=== PATIENT | female | born 1955 | race Caucasian/White ===

== ENCOUNTER 2018-07-17 16:45 | Inpatient (IN) ==
--- NOTE | 2018-07-17 17:12 | Emergency Department Note ---
Disposition Clinical Impression: Dyspnea Qualifiers: Dyspnea type: dyspnea on exertion Qualified Code(s): R06.09 - Other forms of dyspnea Disposition: Still a Patient General Adult HPI - General Chief complaint: ED Shortness of Breath/Dyspnea Stated complaint: narcisa Time Seen by Provider: 07/17/18 16:46 Source: patient, EMS Limitations: no limitations Nursing Notes Reviewed: Yes Vital Signs Reviewed: Yes - History of Present Illness HPI Narrative: ED attending attestation note: I examined this patient and my medical decision-making was reviewed with the emergency medicine resident Aiden Avalos. I agree with the documented findings, disposition and treatment plan as described except to the extent set forth below. Briefly: 62-year-old female sent from [facility] urgent care for shortness breath possible CHF patient x-ray there showing vascular congestion some bibasilar atelectasis patient denies chest pain weakness or numbness her lungs are clear afebrile stable vital signs patient can EKG and screening labs. Disposition pending. There is no pedal edema Pain Scale: 0 - Related Data Home Medications Medication Instructions Recorded Confirmed ALPRAZolam [Xanax 1 MG Tablet] 1 mg PO BID PRN 01/31/15 07/17/18 Albuterol Neb [Proventil Neb] 2.5 mg IH PRN PRN 01/31/15 07/17/18 Budesonide/Formoterol 80/4.5 2 puff IH BIDR 01/31/15 07/17/18 [Symbicort] Desvenlafaxine Succinate [Pristiq 100 mg PO QAM 01/31/15 07/17/18 ER] Meclizine [Antivert] 25 mg PO PRN PRN 01/31/15 07/17/18 Omeprazole [PriLOSEC] 20 mg PO BIDAC 01/31/15 07/17/18 Perphenazine/Amitriptyline HCl 1 tab PO DAILY 01/31/15 07/17/18 [Perphen-Amitrip 2 mg-25 mg Tab] Rosuvastatin [Crestor] 10 mg PO DAILY 01/31/15 07/17/18 Tizanidine [Zanaflex] 4 mg PO Q8H PRN 01/31/15 07/17/18 Hydroxychloroquine [Plaquenuil] 200 mg PO BID 01/29/16 07/17/18 Dextroamphetamine Sulfate 30 mg PO BID 08/05/16 07/17/18 [Dexedrine] Ferrous Sulfate [Iron] 325 mg PO BID 08/05/16 07/17/18 Ascorbic Acid [Vitamin C] 500 mg PO DAILY 10/29/16 07/17/18 Biotin [Ronnie Biotin] 20,000 mcg PO DAILY 10/29/16 07/17/18 Calcium Carb/Vitamin D3/Vit K1 1 each PO BID 10/29/16 07/17/18 [Calcium + D Soft Chewable Tab] Oxygen 2 l NS HS 10/29/16 07/17/18 Pediatric Multivit Comb No.29 2 tab PO DAILY 10/29/16 07/17/18 [Gummies Girls' Multivitamins] Albuterol Sulfate [Proair 2 puff IH PRN PRN 02/25/17 07/17/18 Respiclick] Amlodipine Besylate 10 mg PO DAILY 02/25/17 07/17/18 Diclofenac Sodium [Voltaren] 1 appl TP QID PRN 02/25/17 07/17/18 Lidocaine Patch [Lidoderm 5% patch] 1 patch TP DAILY PRN 03/07/17 07/17/18 Losartan Potassium [Cozaar] 100 mg PO DAILY 03/07/17 07/17/18 Mupirocin [Bactroban Oint] 1 appl TP BID 03/07/17 07/17/18 hydrOXYzine HCl [Hydroxyzine HCl] 50 mg PO DAILY PRN 03/07/17 07/17/18 Umeclidinium [place] [Incruse 62.5 mcg IH DAILY 08/26/17 07/17/18 Ellipta] Perphenazine/Amitriptyline HCl 1 each PO DAILY 02/27/18 07/17/18 [Perphen-Amitrip 4 mg-10 mg Tab] Previous Rx's Medication Instructions Recorded Folic Acid 1 mg PO DAILY #90 tablet 05/08/18 Allergies Allergy/AdvReac Type Severity Reaction Status Date / Time oxycodone [Oxycodone] Allergy Unknown Itching/del Verified 02/27/18 14:23 usional Methylphenidate AdvReac Palpitation Verified 02/27/18 14:23 [From Ritalin] s Past Medical History - Past Medical History Medical history: Reports: asthma, COPD, hypertension Surgical history: Reports: non-contributory Psychiatric history: Reports: anxiety, depression - Social History Smoking Status: Never smoker Smokeless Tobacco Status: No Alcohol use: Reports: none Drug use: Reports: none Physical Exam - General Limitations: no limitations General appearance: alert, in no apparent distress Course Vital Signs Temperature 98.5 F 07/17/18 16:54 Pulse Rate 92 07/17/18 16:54 Respiratory Rate 18 07/17/18 16:54 Blood Pressure 132/81 07/17/18 16:54 O2 Sat by Pulse Oximetry 95 07/17/18 16:54 Temperature 98.5 F 07/17/18 16:54 Pulse Rate 92 07/17/18 16:54 Respiratory Rate 18 07/17/18 16:54 Blood Pressure 132/81 07/17/18 16:54 O2 Sat by Pulse Oximetry 95 07/17/18 16:54 Oxygen Delivery Oxygen Delivery Nasal Cannula
[2018-07-17 17:41] LABS: Basophils % 0.5 %; Eosinophils # 0.1 K/mcL (0.0-0.6); Eosinophils % 1.1 %; Hematocrit 29.2 % (35.3-44.9); Hemoglobin 9.7 g/dL (11.5-15.4); Immature Granulocytes % 1.3 % (0-4); Lymphocytes # 2.5 K/mcL (0.6-4.6); Lymphocytes % 45.1 %; Mean Corpuscular HGB Conc 33.2 g/dL (31.6-35.5); Mean Corpuscular Hemoglobin 28.8 pg (28.0-33.3); Mean Corpuscular Volume 86.6 fL (83.0-100.0); Mean Platelet Volume 10.4 fL (9.4-12.4); Monocytes # 0.5 K/mcL (0.0-1.3); Monocytes % 8.6 %; Neutrophils # 2.4 K/mcL (1.6-8.9); Platelet Count 175 K/mcL (140-400); Red Blood Count 3.37 M/mcL (3.82-4.97); Red Cell Distribution Width 14.6 % (11.5-14.5); Segmented Neutrophils % 43.4 %
[2018-07-17 18:01] LABS: Alanine Aminotransferase 28 Units/L (7-52); Albumin 3.5 g/dL (3.5-5.7); Albumin/Globulin Ratio 1.5 (1.1-2.2); Alkaline Phosphatase 113 Units/L (34-104); Aspartate Amino Transferase 36 Units/L (13-39); BUN/Creatinine Ratio 15 (6-26); Bilirubin,Direct 0.1 mg/dL (0.0-0.2); Bilirubin,Indirect 0.4 mg/dL (0.0-1.2); Bilirubin,Total 0.5 mg/dL (0.3-1.0); Blood Urea Nitrogen 8 mg/dL (8-23); Calcium 8.4 mg/dL (8.6-10.3); Carbon Dioxide 27 mEq/L (23-29); Chloride 105 mEq/L (98-107); Globulin 2.4 g/dL (2.4-3.5); Glucose 106 mg/dL (70-105); Osmolality,Calculated 291 (280-300); Potassium 3.3 mEq/L (3.5-5.1); Sodium 141 mEq/L (136-145); Total Protein 5.9 g/dL (6.4-8.9); eGFR For Non-African Americans > 60 (> 60)
[2018-07-17 18:04] LABS: Reactive Lymphocytes Present (Not Present)
--- NOTE | 2018-07-17 18:05 | Emergency Department Note ---
Disposition Clinical Impression: Dyspnea Qualifiers: Dyspnea type: dyspnea on exertion Qualified Code(s): R06.09 - Other forms of dyspnea Disposition: Still a Patient Referrals: Sandra Costa MD [Primary Care Provider] - Forms: ED Satisfaction Letter SOB HPI - General Chief Complaint: ED Shortness of Breath/Dyspnea Stated Complaint: narcisa Time Seen by Provider: 07/17/18 16:46 Source: patient, EMS Limitations: no limitations Nursing Notes Reviewed: Yes Vital Signs Reviewed: Yes - History of Present Illness 62-year-old female past medical history of COPD and asthma presenting for 2 day history of gradually progressive and worsening dyspnea. Patient was seen at urgent care and told to come to the ED due to a negative workup at urgent care in light of her current symptoms. Patient states that in addition to dyspnea she feels 5 out of 10 chest tightn ess, patient has admitted to cotton and cold spells without objective fevers, patient is to nausea, as well as numbness and paresthesias in her extremities. Patient denies overt or generalized chest pain, no neck or back pain, no abdominal pain or vomiting. Pt Subjective Complaint: shortness of breath, pain with inspiration (Patient admits to epigastric pain made worse upon inspiration.) Onset (ago): day(s) Severity: moderate Consistency/Duration: gradually worsening Worsens with: movement, inspiration Known history of: COPD, asthma Associated symptoms: Reports: pain with inspiration, fever, nausea/vomiting Treatment prior to arrival: none Cough present: No - Related Data Home Medications Medication Instructions Recorded Confirmed ALPRAZolam [Xanax 1 MG Tablet] 1 mg PO BID PRN 01/31/15 07/17/18 Albuterol Neb [Proventil Neb] 2.5 mg IH PRN PRN 01/31/15 07/17/18 Budesonide/Formoterol 80/4.5 2 puff IH BIDR 01/31/15 07/17/18 [Symbicort] Desvenlafaxine Succinate [Pristiq 100 mg PO QAM 01/31/15 07/17/18 ER] Meclizine [Antivert] 25 mg PO PRN PRN 01/31/15 07/17/18 Omeprazole [PriLOSEC] 20 mg PO BIDAC 01/31/15 07/17/18 Perphenazine/Amitriptyline HCl 1 tab PO DAILY 01/31/15 07/17/18 [Perphen-Amitrip 2 mg-25 mg Tab] Rosuvastatin [Crestor] 10 mg PO DAILY 01/31/15 07/17/18 Tizanidine [Zanaflex] 4 mg PO Q8H PRN 01/31/15 07/17/18 Hydroxychloroquine [Plaquenuil] 200 mg PO BID 01/29/16 07/17/18 Dextroamphetamine Sulfate 30 mg PO BID 08/05/16 07/17/18 [Dexedrine] Ferrous Sulfate [Iron] 325 mg PO BID 08/05/16 07/17/18 Ascorbic Acid [Vitamin C] 500 mg PO DAILY 10/29/16 07/17/18 Biotin [Ronnie Biotin] 20,000 mcg PO DAILY 10/29/16 07/17/18 Calcium Carb/Vitamin D3/Vit K1 1 each PO BID 10/29/16 07/17/18 [Calcium + D Soft Chewable Tab] Oxygen 2 l NS HS 10/29/16 07/17/18 Pediatric Multivit Comb No.29 2 tab PO DAILY 10/29/16 07/17/18 [Gummies Girls' Multivitamins] Albuterol Sulfate [Proair 2 puff IH PRN PRN 02/25/17 07/17/18 Respiclick] Amlodipine Besylate 10 mg PO DAILY 02/25/17 07/17/18 Diclofenac Sodium [Voltaren] 1 appl TP QID PRN 02/25/17 07/17/18 Lidocaine Patch [Lidoderm 5% patch] 1 patch TP DAILY PRN 03/07/17 07/17/18 Losartan Potassium [Cozaar] 100 mg PO DAILY 03/07/17 07/17/18 Mupirocin [Bactroban Oint] 1 appl TP BID 03/07/17 07/17/18 hydrOXYzine HCl [Hydroxyzine HCl] 50 mg PO DAILY PRN 03/07/17 07/17/18 Umeclidinium [place] [Incruse 62.5 mcg IH DAILY 08/26/17 07/17/18 Ellipta] Perphenazine/Amitriptyline HCl 1 each PO DAILY 02/27/18 07/17/18 [Perphen-Amitrip 4 mg-10 mg Tab] Previous Rx's Medication Instructions Recorded Folic Acid 1 mg PO DAILY #90 tablet 05/08/18 Allergies Allergy/AdvReac Type Severity Reaction Status Date / Time oxycodone [Oxycodone] Allergy Unknown Itching/del Verified 02/27/18 14:23 usional Methylphenidate AdvReac Palpitation Verified 02/27/18 14:23 [From Ritalin] s All systems ED: reviewed and negative except as stated. Review of Systems: As Per HPI Constitutional: Reports: fever, chills, weakness Cardiovascular: Reports: chest pain, palpitations Respiratory: Reports: dyspnea Gastrointestinal: Reports: nausea. Denies: abdominal pain, vomiting, diarrhea, constipation, hematemesis, melena, hematochezia Genitourinary: Denies: hematuria Musculoskeletal: Denies: back pain, neck pain Neurological: Reports: weakness, numbness, paresthesias. Denies: headache Past Medical History - Past Medical History Medical history: Reports: asthma, COPD, hypertension Surgical history: Reports: non-contributory Psychiatric history: Reports: anxiety, depression - Social History Smoking Status: Never smoker Smokeless Tobacco Status: No Alcohol use: Reports: none Drug use: Reports: none Physical Exam - General Limitations: no limitations General appearance: alert, in no apparent distress - Head Head exam: atraumatic, normocephalic, normal inspection - Eye Eye exam: Present: normal appearance, PERRL, EOMI. Absent: scleral icterus - Neck Neck exam: Present: normal inspection, trachea midline. Absent: thyromegaly - Chest Chest inspection: Present: normal inspection, symmetric chest wall rise. Absent: tenderness - Respiratory Respiratory exam: Present: normal lung sounds bilaterally. Absent: respiratory distress, wheezes, stridor, accessory muscle use, prolonged expiratory phase - Cardiovascular Cardiovascular exam: Present: regular rate, normal rhythm, normal heart sounds, +S1, +S2. Absent: systolic murmur, diastolic murmur, JVD, +S3, +S4 - Abdominal Exam Abdominal exam: Present: soft, Non-Tender, normal bowel sounds. Absent: distention, guarding, rebound, rigidity, organomegaly - Neurological Exam Neurological exam: Present: alert, oriented X3 - Psychiatric Psychiatric exam: Present: normal affect, normal mood - Skin Skin exam: Present: warm, dry, intact, normal color. Absent: rash, cyanosis, diaphoresis, erythema, pallor, mottled Course Course Narrative: X-ray from outside facility shows mild interstitial edema with pulmonary infiltrates Likely CHF exacerbation Patient without known history of CHF We will likely admit for further evaluation. Vital Signs Temperature 98.5 F 07/17/18 16:54 Pulse Rate 92 07/17/18 16:54 Respiratory Rate 18 07/17/18 16:54 Blood Pressure 132/81 07/17/18 16:54 O2 Sat by Pulse Oximetry 95 07/17/18 16:54 Temperature 98.5 F 07/17/18 16:54 Pulse Rate 78 07/17/18 18:17 Respiratory Rate 18 07/17/18 18:17 Blood Pressure 132/80 07/17/18 18:17 O2 Sat by Pulse Oximetry 96 07/17/18 18:17 Oxygen Delivery Oxygen Delivery Room Air Shortness of Breath/Dyspnea - MDM Narrative Medical decision making narrative: Patient admitted to hospitalist medicine service for further evaluation and management of congestive heart failure exacerbation. - Lab Data Lab results reviewed: Yes I reviewed the patient's lab results. Result diagrams: 07/17/18 17:15 07/17/18 17:15 Lab Results 07/17/18 07/17/18 07/17/18 Range/Units 17:15 17:15 17:15 WBC 5.6 (4.3-11.1) K/mcL RBC 3.37 L (3.82-4.97) M/mcL Hgb 9.7 L (11.5-15.4) g/dL Hct 29.2 L (35.3-44.9) % MCV 86.6 (83.0-100.0) fL MCH 28.8 (28.0-33.3) pg MCHC 33.2 (31.6-35.5) g/dL RDW 14.6 H (11.5-14.5) % Plt Count 175 (140-400) K/mcL MPV 10.4 (9.4-12.4) fL Immature Gran % 1.3 (0-4) % Seg Neutrophils % 43.4 % Lymphocytes % 45.1 % Monocytes % 8.6 % Eosinophils % 1.1 % Basophils % 0.5 % Neutrophils # 2.4 (1.6-8.9) K/mcL Lymphocytes # 2.5 (0.6-4.6) K/mcL Monocytes # 0.5 (0.0-1.3) K/mcL Eosinophils # 0.1 (0.0-0.6) K/mcL Basophils # 0.0 (0.0-0.2) K/mcL Reactive Lymphocytes Present A (Not Present) Sodium 141 (136-145) mEq/L Potassium 3.3 L (3.5-5.1) mEq/L Chloride 105 (98-107) mEq/L Carbon Dioxide 27 (23-29) mEq/L BUN 8 (8-23) mg/dL Creatinine 0.52 L (0.60-1.20) mg/dL Est GFR ( Amer) > 60 (> 60) Est GFR (Non-Af Amer) > 60 (> 60) BUN/Creatinine Ratio 15 (6-26) Glucose 106 H (70-105) mg/dL Calculated Osmolality 291 (280-300) Calcium 8.4 L (8.6-10.3) mg/dL Total Bilirubin 0.5 (0.3-1.0) mg/dL Direct Bilirubin 0.1 (0.0-0.2) mg/dL Indirect Bilirubin 0.4 (0.0-1.2) mg/dL AST 36 (13-39) Units/L ALT 28 (7-52) Units/L Alkaline Phosphatase 113 H (34-104) Units/L B-Natriuretic Peptide 238 H (Less than 100) pg/mL Serum Total Protein 5.9 L (6.4-8.9) g/dL Albumin 3.5 (3.5-5.7) g/dL Globulin 2.4 (2.4-3.5) g/dL Albumin/Globulin Ratio 1.5 (1.1-2.2) - Radiology Data Radiology results reviewed: Yes I reviewed the patient's radiology results. - EKG Data EKG attestation: Yes I reviewed and interpreted this EKG. EKG results narrative: Patient EKG shows a sinus rhythm with ventricular rate 90 bpm WI interval of 195 ms QRS duration of 11 ms, QT/QTc interval 366/416 ms respectively. There are no significant ST segment elevations, depressions, pathologic Q waves, abnormal T- wave inversions, or any other signs of acute ischemic change. At this time there is no prior EKG available for comparison. Repeat EKG performed in ED shows sinus rhythm with a ventricular premature complex with a heart of 84 bpm WI interval 170 ms, QRS duration 10 ms, QT/QTc interval 394/466 ms respectively. There are no significant ST segment elevations, depressions, pathologic Q waves, abnormal T-wave inversions, nor any other signs of acute ischemic change. EKG performed today is generally consistent with prior EKG performed on 03/07/2017.
[2018-07-17] MEDS ORDERED: ALPRAZolam 0.5 MG TABLET PO ONE (18:19)
[2018-07-17] MEDS ORDERED: Furosemide 40 MG/4 ML VIAL IVP ONE (19:53)
[2018-07-17] MEDS ORDERED: MethylPREDNISolone 40 MG/ML VIAL IVP ONE (19:54)
[2018-07-17] MEDS ORDERED: Albuterol 2.5 MG/3 ML NEBULIZER IH PRN (20:44)
[2018-07-17] MEDS ORDERED: tiZANidine 4 MG TABLET PO PRN (20:44)
[2018-07-17] MEDS ORDERED: hydrOXYzine pamoate 25 MG CAPSULE PO PRN (20:44)
[2018-07-17] MEDS ORDERED: Potassium Chloride Elixir 20 MEQ/15 ML UDC PO ONE (20:49)
[2018-07-17] MEDS ORDERED: Isovue-370 500 ML BOTTLE IVP ONE (20:50)
[2018-07-17] MEDS: Ipratropium/Albuterol Neb 3 ML IH SCH ×2 (20:55→23:51)
--- NOTE | 2018-07-17 20:55 | Internal Med History&Physical ---
Date of Encounter: 07/17/18 Time of Encounter: 20:54 Internal Medicine - H&P: HPI Chief complaint: SOB Admitted From: Home Plans for Post Hospital Care: Home History of present illness: Soledad Hernandez is a 62 year old woman with hypertension, diabetes, anemia, Sjogrens and asthma/COPD on nocturnal oxygen who presents to the emergency room complaining of increasing shortness of breath over the past week that has not been responsive to her home inhaler treatments. She denies accompanying cough, sputum production, chest pain, fever and chills. X-ray at urgent care showed mild interstitial edema although she has no known history of heart failure. She required continuous supplemental oxygen to maintain oxygen saturations which is a new requirement and is admitted for further care. Lab work was grossly unremarkable. Vitals: Reviewed General: Obese white woman sitting up in bed in NAD Skin: Warm, dry HEENT: Moist mucous membranes. No conjunctivae pallor. Neck: No lymphadenopathy. No JVD. No carotid bruits. No palpable thyroid. Chest: Diminished thoracic expansion, scoliotic. Reduced air entry into both lung eckert. Heart: Normal S1 & S2; rhythmic. No rubs or murmurs. Abdomen: Non-distended, soft and non-tender to palpation. No peritoneal reaction. Extremities: No clubbing, cyanosis or edema. No calf tenderness. Normal distal pulses. Arthritic hands with nodular deformities on DIPs/PIPs. Neurological: Awake, alert and oriented to person, place and time. No focal deficits. Psych: Affect appropriate. Assessment/Plan Acute hypoxic respiratory failure: I am concerned that this is secondary to her underlying COPD and requires more aggressive therapy than what she can get at home and therefore will place her on standing nebulizer therapy q4hrs and systemic steroids. No indication for antimicrobials at this point. The presence of interstitial congestion also gives concern for pulmonary edema especially with a mildly elevated BNP although not meeting threshold for CHF. Will there fore give a dose of furosemide 40mg IVP tonight to assess her response after diuresis and obtain a TTE for evaluation of cardiac morphology. Given her underlying connective tissue disorder she may also be developing an interstitial lung disease and therefore she will benefit from CT evaluation which can also rule out pulmonary embolism as a cause of her hypoxia. Will schedule it for the morning once she is able to lay supine after getting more breathing treatments. Anemia: Microcytic and concerning for iron deficiency. It is noted she has previously seen hematology in the past because of this. Will get iron studies for evaluation and resume FeSO4/folate. Sjogrens: Continue hydroxychloroquine. HTN: Continue home antihypertensive medications. Diabetes: Reportedly diet controlled. Will check an A1C. Past Med Surg Social Fam HX - Past Medical History Medical history: asthma, COPD, hypertension Additional medical history: [id number] Psychiatric history: anxiety, depression - Past Surgical History Surgical History: non-contributory Additional surgical history: tubal ligation -back surgery x 2 - left thumb surgery - Hiatel hernia - Right CTR - Right RCR - bilateral vein stripping - n odule from face - lip biopsy - Social History Smoking Status: Never smoker Smokeless Tobacco Status: No Alcohol use: none Drug use: none - Family History Mother Cause of : Stroke Hx Family Cardiac Disorders: Yes Internal Medicine - H&P: Meds ALPRAZolam [Xanax 1 MG Tablet] 0.5 mg PO BID PRN 01/31/15 [History] Albuterol Neb [Proventil Neb] 2.5 mg IH PRN PRN 01/31/15 [History] Budesonide/Formoterol 80/4.5 [Symbicort] 2 puff IH BIDR 01/31/15 [History] Desvenlafaxine Succinate [Pristiq ER] 100 mg PO QAM 01/31/15 [History] Meclizine [Antivert] 25 mg PO PRN PRN 01/31/15 [History] Omeprazole [PriLOSEC] 20 mg PO BIDAC 01/31/15 [History] Perphenazine/Amitriptyline HCl [Perphen-Amitrip 2 mg-25 mg Tab] 1 tab PO DAILY 01/31/15 [History] Rosuvastatin [Crestor] 10 mg PO DAILY 01/31/15 [History] Tizanidine [Zanaflex] 4 mg PO Q8H PRN 01/31/15 [History] Hydroxychloroquine [Plaquenuil] 200 mg PO DAILY 01/29/16 [History] Dextroamphetamine Sulfate [Dexedrine] 30 mg PO BID 08/05/16 [History] Ferrous Sulfate [Iron] 325 mg PO BID 08/05/16 [History] Ascorbic Acid [Vitamin C] 500 mg PO DAILY 10/29/16 [History] Biotin [Ronnie Biotin] 20,000 mcg PO DAILY 10/29/16 [History] Calcium Carb/Vitamin D3/Vit K1 [Calcium + D Soft Chewable Tab] 1 each PO BID 10/29/16 [History] Oxygen 2 l NS HS 10/29/16 [History] Pediatric Multivit Comb No.29 [Gummies Girls' Multivitamins] 2 tab PO DAILY 10/29/16 [History] Albuterol Sulfate [Proair Respiclick] 2 puff IH PRN PRN 02/25/17 [History] Amlodipine Besylate 10 mg PO HS 02/25/17 [History] Diclofenac Sodium [Voltaren] 1 appl TP QID PRN 02/25/17 [History] Lidocaine Patch [Lidoderm 5% patch] 1 patch TP DAILY PRN 03/07/17 [History] hydrOXYzine HCl [Hydroxyzine HCl] 50 mg PO DAILY PRN 03/07/17 [History] Umeclidinium [place] [Incruse Ellipta] 62.5 mcg IH DAILY 08/26/17 [History] Folic Acid 1 mg PO DAILY #90 tablet 05/08/18 [Rx] Losartan/Hydrochlorothiazide [Losartan-Hctz 100-25 mg Tab] 1 each PO QAM 07/17/18 [History] Tens Units and Tens Electrodes [Pro Comfort Tens Unit] 07/17/18 [History] Allergy/AdvReac Type Severity Reaction Status Date / Time oxycodone [Oxycodone] Allergy Unknown Itching/del Verified 02/27/18 14:23 usional Methylphenidate AdvReac Palpitation Verified 02/27/18 14:23 [From Ritalin] s All Systems PM: A 10-system review of systems was performed and is negative for pertinent findings except as documented above in the HPI. - Constitutional Vitals: Temp Pulse Resp BP Pulse Ox 98.0 F 77 15 125/64 95 07/17/18 20:06 07/17/18 20:06 07/17/18 20:06 07/17/18 20:06 07/17/18 20:06 Exam: . Internal Med - H&P Results - Labs CBC & Chem 7: 07/17/18 17:15 07/17/18 17:15 Labs: Short CBC 07/17/18 Range/Units 17:15 WBC 5.6 (4.3-11.1) K/mcL Hgb 9.7 L (11.5-15.4) g/dL Hct 29.2 L (35.3-44.9) % Plt Count 175 (140-400) K/mcL Neutrophils # 2.4 (1.6-8.9) K/mcL BMP 07/17/18 17:15 Sodium 141 Potassium 3.3 L Chloride 105 Carbon Dioxide 27 BUN 8 Creatinine 0.52 L Glucose 106 H Calcium 8.4 L Liver Function 07/17/18 Range/Units 17:15 Total Bilirubin 0.5 (0.3-1.0) mg/dL Direct Bilirubin 0.1 (0.0-0.2) mg/dL AST 36 (13-39) Units/L ALT 28 (7-52) Units/L Alkaline Phosphatase 113 H (34-104) Units/L Albumin 3.5 (3.5-5.7) g/dL - Time Spent With Patient Total time spent is greater than 50% in coordination of care (as documented) at patient's floor/unit and/or counseling patient: Greater than 35 minutes
[2018-07-17] MEDS: amLODIPine 5 MG TABLET PO SCH (21:20)
[2018-07-17] MEDS ORDERED: Naloxone 0.4 MG/ML INJ IVP PRN (21:46)
[2018-07-17] MEDS ORDERED: Acetaminophen 325 MG TABLET PO PRN (21:46)
[2018-07-18] MEDS: Ipratropium/Albuterol Neb 3 ML IH SCH ×5 (04:15→22:00)
[2018-07-18 05:51] LABS: INR 1.1; Prothrombin Time 12.3 Seconds (9.4-12.1)
[2018-07-18 05:53] LABS: Activated Partial Thrombo Time 33.5 Seconds (26.0-36.0)
[2018-07-18] MEDS: *HR* Heparin 5,000 UNIT/ML VIAL SQ SCH ×2 (07:28→17:04)
[2018-07-18 07:47] LABS: % Iron Saturation 15 % (15-50); BUN/Creatinine Ratio 17 (6-26); Blood Urea Nitrogen 9 mg/dL (8-23); Calcium 8.8 mg/dL (8.6-10.3); Carbon Dioxide 26 mEq/L (23-29); Chloride 104 mEq/L (98-107); Ferritin 558 ng/mL (10-120); Glucose 147 mg/dL (70-105); Iron 51 mcg/dL (50-170); Osmolality,Calculated 295 (280-300); Potassium 3.7 mEq/L (3.5-5.1); Sodium 142 mEq/L (136-145); Transferrin 242 mg/dL (203-362); eGFR For Non-African Americans > 60 (> 60)
[2018-07-18 08:10] LABS: Basophils % 0.4 %; Eosinophils % 0.2 %; Hematocrit 29.7 % (35.3-44.9); Hemoglobin 9.8 g/dL (11.5-15.4); Immature Granulocytes % 3.1 % (0-4); Lymphocytes # 1.8 K/mcL (0.6-4.6); Lymphocytes % 39.9 %; Mean Corpuscular Hemoglobin 28.3 pg (28.0-33.3); Mean Corpuscular Volume 85.8 fL (83.0-100.0); Mean Platelet Volume 10.8 fL (9.4-12.4); Monocytes # 0.2 K/mcL (0.0-1.3); Monocytes % 4.5 %; Neutrophils # 2.3 K/mcL (1.6-8.9); Platelet Count 185 K/mcL (140-400); Red Blood Count 3.46 M/mcL (3.82-4.97); Red Cell Distribution Width 14.8 % (11.5-14.5); Segmented Neutrophils % 51.9 %
[2018-07-18 08:26] LABS: Estimated Average Glucose 123 mg/dl; Hemoglobin A1C 5.9 %
[2018-07-18] MEDS ORDERED: Losartan/HCTZ 50-12.5 TABLET PO SCH (09:00)
[2018-07-18] MEDS ORDERED: (Umeclidinium Bromide [Incruse Ellipta] 62.5 MCG) IH SCH (09:00)
[2018-07-18] MEDS: Ascorbic Acid 500 MG TABLET PO SCH (09:14)
[2018-07-18] MEDS: Folic Acid 1 MG TABLET PO SCH (09:15)
[2018-07-18] MEDS: Venlafaxine XR (24 HR) 150 MG CAP.ER.24H PO SCH (09:15)
[2018-07-18] MEDS: predniSONE 20 MG TABLET PO SCH (09:15)
[2018-07-18] MEDS: ALPRAZolam 0.5 MG TABLET PO PRN ×2 (09:25→20:24)
--- NOTE | 2018-07-18 12:32 | Internal Med Progress Note ---
Hospitalist Progress Note - Encounter Date of Encounter: 07/18/18 Time of Encounter: 12:31 - Subjective Interval History: Pt today says she can breathe a lot easier today, taking much deeper breaths. Says she's gotten breathing treatments as well which helped some. Urinated a lot from the lasix. Does have mildly swollen ankles. Tolerated CT this morning well. Good appetite today. - Exam Vitals: Temp Pulse Resp BP Pulse Ox 97.5 F L 77 17 120/74 94 07/18/18 11:19 07/18/18 11:19 07/18/18 11:19 07/18/18 11:19 07/18/18 11:19 Exam: General: NAD, good eye contact, well appearing, obese Thoracic: Good air movement, bibasilar crackles Cardio: Normal S1 and S2, regular rate and rhythm, no murmurs Abdomen: Soft, nontender Extremities: Warm, well perfused. DP pulses 2+ b/l. Does have pitting b/l LE edema through knees and dependent in thighs Skin: Intact. No rashes, bruises, or ulcers Neuro: Awake, fully oriented. Speech fluent - Summary of Assessment and Plan Summary of Assessment and Plan: Soledad Hernandez is a 62 F w hx COPD on 2L qhs, HTN, DM2, Sjogrens, morbid obesity, who p/w SOB, pedal edema, bibasilar crackles, elevated BNP, and b/l pleural effusions, consistent with acute CHF. Acute HF: longstanding HTN and COPD, elevated BNP and pedal edema, good UOP overnight w lasix - Lasix 40 iv bid - strict I&Os, daily weights - TTE pending COPD in acute exacerbation: - nebs q6h&prn - prednisone 40 daily x5d, s/p solumedrol 125 in ED - azithromycin 500 po daily x5d - home inhalers Acute hypoxic respiratory failure: requiring 2L O2 to maintain sats >88% - supplemental O2, wean as able - IS - treat cause as above - walk test prior to discharge Mild normocytic anemia: 2/2 chronic disease, home iron tabs, keep Hb >7 Hypokalemia: replace and monitor HTN: home losartan/hctz HLD: home statin DM2: SSI Sjogrens: home plaquenil Dep/Anx: home effexor, vistaril prn, xanax prn Morbid obesity: BMI 44 PPx: sqh FEN: cardiac ADA 1.5L, no MIVF Lines: PIV Consults: Code: Full Dispo: patient requires inpatient eval and management at this time. Anticipate 2-3 days. Will be homegoing Internal Medicine: Result - Labs CBC & Chem 7: 07/18/18 05:10 07/18/18 05:10 Labs: Short CBC 07/17/18 07/18/18 Range/Units 17:15 05:10 WBC 5.6 4.5 (4.3-11.1) K/mcL Hgb 9.7 L 9.8 L (11.5-15.4) g/dL Hct 29.2 L 29.7 L (35.3-44.9) % Plt Count 175 185 (140-400) K/mcL Neutrophils # 2.4 2.3 (1.6-8.9) K/mcL BMP 07/17/18 07/18/18 17:15 05:10 Sodium 141 142 Potassium 3.3 L 3.7 Chloride 105 104 Carbon Dioxide 27 26 BUN 8 9 Creatinine 0.52 L 0.52 L Glucose 106 H 147 H Calcium 8.4 L 8.8 Liver Function 07/17/18 Range/Units 17:15 Total Bilirubin 0.5 (0.3-1.0) mg/dL Direct Bilirubin 0.1 (0.0-0.2) mg/dL AST 36 (13-39) Units/L ALT 28 (7-52) Units/L Alkaline Phosphatase 113 H (34-104) Units/L Albumin 3.5 (3.5-5.7) g/dL - ABG Interpretation ABG results: PT/INR, D-dimer PT 12.3 Seconds (9.4-12.1) H 07/18/18 05:10 1648 ng/mLFEU (0-500) H 07/18/18 05:10 - Impressions Impressions Chest CTA 07/18/18 09:30 IMPRESSION: No evidence of pulmonary embolism. Mildly prominent main pulmonary artery size, likely related to mild pulmonary hypertension. Small bilateral pleural effusions, right more than left Bilateral dependent and discoid atelectasis. Splenomegaly. Small hiatal hernia. D/ / Nabeel Zuniga MD / Nabeel Zuniga MD Interpreting Provider: Nabeel Zuniga MD Consult Discharge Plan - Plan Referrals: Sandra Costa MD [Primary Care Provider] -
[2018-07-18] MEDS ORDERED: Furosemide 40 MG/4 ML VIAL IVP ONE ×2 (13:09→18:00)
[2018-07-18] MEDS: Azithromycin 250 MG TABLET PO SCH (14:13)
[2018-07-18] MEDS: amLODIPine 5 MG TABLET PO SCH (20:24)
[2018-07-19] MEDS: Ipratropium/Albuterol Neb 3 ML IH SCH ×4 (04:51→21:30)
[2018-07-19] MEDS: *HR* Heparin 5,000 UNIT/ML VIAL SQ SCH ×2 (05:48→17:30)
[2018-07-19] MEDS ORDERED: Furosemide 40 MG/4 ML VIAL IVP SCH (08:00)
[2018-07-19] MEDS: traMADol 50 MG TABLET PO PRN ×2 (08:18→21:13)
[2018-07-19] MEDS: ALPRAZolam 0.5 MG TABLET PO PRN ×2 (08:18→21:13)
[2018-07-19] MEDS: Ascorbic Acid 500 MG TABLET PO SCH (08:19)
[2018-07-19] MEDS: predniSONE 20 MG TABLET PO SCH (08:19)
[2018-07-19] MEDS: Azithromycin 250 MG TABLET PO SCH (08:19)
[2018-07-19] MEDS: Venlafaxine XR (24 HR) 150 MG CAP.ER.24H PO SCH (08:19)
[2018-07-19] MEDS: Folic Acid 1 MG TABLET PO SCH (08:19)
[2018-07-19] MEDS ORDERED: Ibuprofen 400 MG TABLET PO PRN (11:09)
--- NOTE | 2018-07-19 11:12 | Internal Med Progress Note ---
Hospitalist Progress Note - Encounter Date of Encounter: 07/19/18 Time of Encounter: 11:10 - Subjective Interval History: Peeing a lot and overall feels her breathing is better, less cough, decreased leg swelling. Hoping to go home tomorrow. Continues to complain of frequent headaches but no symptoms otherwise including no N/V/D. - Exam Vitals: Temp Pulse Resp BP Pulse Ox 97.9 F 79 14 99/63 93 07/19/18 07:23 07/19/18 07:23 07/19/18 10:28 07/19/18 07:23 07/19/18 10:28 Exam: General: NAD, good eye contact, well appearing, obese Thoracic: Good air movement, no crackles, does have end expiratory wheezes on forced exhalation Cardio: Normal S1 and S2, regular rate and rhythm, no murmurs Abdomen: Soft, nontender Extremities: Warm, well perfused. DP pulses 2+ b/l. Does have mild pitting b/l LE edema senior living up shins, no longer in dependent thighs Skin: Intact. No rashes, bruises, or ulcers Neuro: Awake, fully oriented. Speech fluent - Summary of Assessment and Plan Summary of Assessment and Plan: Soledad Hernandez is a 62 F w hx COPD on 2L qhs, HFpEF, HTN, DM2, Sjogrens, morbid obesity, who p/w SOB, pedal edema, bibasilar crackles, elevated BNP, and b/l pleural effusions, consistent with acute CHF. Acute HFpEF: longstanding HTN and COPD, elevated BNP and pedal edema, TTE showing LAE and mild PH suggestive of diastolic HF. Good UOP w lasix, volume status improving quickly. - Lasix 40 iv this AM, convert to 40 po in PM - strict I&Os, daily weights COPD in acute exacerbation: improving - nebs q6h&prn - prednisone 40 daily x5d, s/p solumedrol 125 in ED - azithromycin 500 po daily x5d - home inhalers Acute hypoxic respiratory failure: requiring 2L O2 to maintain sats >88% - supplemental O2, wean as able - IS - treat cause as above - walk test prior to discharge Mild normocytic anemia: 2/2 chronic disease, home iron tabs, keep Hb >7 Hypokalemia: replace and monitor HTN: holding home amlodipine and losartan/hctz 2/2 relative hypotension while diuresing HLD: home statin DM2: SSI Sjogrens: home plaquenil Dep/Anx: home effexor, vistaril prn, xanax prn Morbid obesity: BMI 44 PPx: sqh FEN: cardiac ADA 1.5L, no MIVF Lines: PIV Consults: Code: Full Dispo: patient requires inpatient eval and management at this time. Anticipate 1-2 days. Will be homegoing Internal Medicine: Result - Labs CBC & Chem 7: 07/18/18 05:10 07/18/18 05:10 - ABG Interpretation ABG results: PT/INR, D-dimer PT 12.3 Seconds (9.4-12.1) H 07/18/18 05:10 1648 ng/mLFEU (0-500) H 07/18/18 05:10 - Impressions Impressions Echocardiogram 07/17/18 19:51 Impressions: LVEF 60%. Indeterminate diastolic function. Normal right ventricular structure and function. Mild tricuspid regurgitation. Mild pulmonary hypertension. Left Ventricular Wall Motion: Rest Echo Findings All wall segments showed normal motion. Findings: Study Quality * Technically adequate exam. ECG Findings * Normal sinus rhythm. Left Ventricle * LVEF 60%. * Normal LV chamber size, wall thickness and function. * Indeterminate diastolic function. Right Ventricle * Normal right ventricular structure and function. Left Atrium * Severely dilated left atrium. Right Atrium * Normal right atrial size. Mitral Valve * Normal mitral valve structure. * No mitral stenosis. * Trace mitral regurgitation. Aortic Valve * No aortic regurgitation. * Aortic valve not well visualized. * No aortic stenosis. Tricuspid Valve * Tricuspid valve not well visualized. * Mild tricuspid regurgitation. * Estimated RA pressure is 8 mmHg. * Estimated RVSP is 41 mmHg. * Mild pulmonary hypertension. Pulmonic Valve * Pulmonic valve is not well visualized. * No pulmonic stenosis. * No pulmonic regurgitation. Pulmonary Artery * Pulmonary artery not well visualized. Aorta * Normally sized aortic root. Pericardium * There is no pericardial effusion present. Interatrial Septum * No evidence of PFO by color Doppler. IVC * The IVC is dilated. * > 50% respiratory change Consult Discharge Plan - Plan Referrals: Sandra Costa MD [Primary Care Provider] -
[2018-07-19] MEDS: Furosemide 40 MG TABLET PO SCH (17:30)
[2018-07-20] MEDS: Ipratropium/Albuterol Neb 3 ML IH SCH ×2 (04:23→10:19)
[2018-07-20 05:31] LABS: Hematocrit 32.8 % (35.3-44.9); Hemoglobin 10.5 g/dL (11.5-15.4); Mean Corpuscular Hemoglobin 28.5 pg (28.0-33.3); Mean Corpuscular Volume 88.9 fL (83.0-100.0); Mean Platelet Volume 9.8 fL (9.4-12.4); Platelet Count 283 K/mcL (140-400); Red Blood Count 3.69 M/mcL (3.82-4.97); Red Cell Distribution Width 14.9 % (11.5-14.5)
[2018-07-20] MEDS: *HR* Heparin 5,000 UNIT/ML VIAL SQ SCH (05:44)
[2018-07-20 05:56] LABS: BUN/Creatinine Ratio 41 (6-26); Blood Urea Nitrogen 23 mg/dL (8-23); Calcium 9.1 mg/dL (8.6-10.3); Carbon Dioxide 31 mEq/L (23-29); Chloride 100 mEq/L (98-107); Glucose 94 mg/dL (70-105); Osmolality,Calculated 295 (280-300); Potassium 3.4 mEq/L (3.5-5.1); Sodium 141 mEq/L (136-145); eGFR For Non-African Americans > 60 (> 60)
[2018-07-20 07:01] VITALS: BP 116/69
[2018-07-20] MEDS: Folic Acid 1 MG TABLET PO SCH (08:50)
[2018-07-20] MEDS: Venlafaxine XR (24 HR) 150 MG CAP.ER.24H PO SCH (08:50)
[2018-07-20] MEDS: predniSONE 20 MG TABLET PO SCH (08:50)
[2018-07-20] MEDS: Furosemide 40 MG TABLET PO SCH (08:50)
[2018-07-20] MEDS: Azithromycin 250 MG TABLET PO SCH (08:50)
[2018-07-20] MEDS: Ascorbic Acid 500 MG TABLET PO SCH (08:51)
--- NOTE | 2018-07-20 10:20 | Discharge Summary ---
- NOTES TO OUTPATIENT PROVIDER Notes to Outpatient Provider: New diagnosis diastolic heart failure on lasix. Stopped hctz/lisinopril for borderline hypotension. Restart lisinopril at low dose if pt has microalbuminuria. Also, pt on both xanax and amphetamine, recommend d/c both but at least dexedrine due to new CHF Date of Encounter: 07/20/18 Time of Encounter: 10:20 Hospital course: Dear Doctors, I recently had the opportunity to care for this patient during their recent hospital stay at [facility]. Soledad Hernandez is a 62 F w hx COPD on 2L qhs, HFpEF, HTN, DM2, Sjogrens, morbid obesity, who presented at time of admission w progressive SOB and cough. In the ED, found to have pedal edema, bibasilar crackles, elevated BNP, and CXR w b/l pleural effusions, consistent with acute CHF. In the hospital, patient managed as both CHF and COPD exacerbations, and improved expectantly with diuresis, steroids, azithromycin, and nebulizers. An Echo showed normal LVEF and was unable to evaluate diastolic function, but is notable for LAE and mild PH suggestive of diastolic HF. She diuresed well with improvement in swelling and respiratory symptoms, and will take Lasix 40 daily upon discharge. Due to borderline pressures (SBP 100s), her thiazide/ACEi combo was discontinued but ACEi should be resumed if she has indications like microalbuminuria. Also, her home meds include both a Benzo and Stimulant, and the amphetamine has been advised for cessation due to CHF. Dx: acute diastolic HF, COPD in acute exacerbation Pertinent tests/consults: TTE Follow up: PCP 1 week Tests pending: none Med changes: - stop Dexedrine - new prednisone 40 daily x2 days - new azithromycin 500 daily x2 days - new Lasix 40 daily - new KCl 10 meq daily Mental status: awake, fully oriented Code status: Supervisor Liquefaction spent on discharge: 35 minutes It has been my pleasure participating in this patient's care. Please contact me with any questions or concerns regarding their hospital stay. Sincerely, Diogenes Thompson MD - Discharge Medications Prescriptions: New Furosemide [Lasix] 40 mg PO DAILY #30 tablet Potassium Chloride 10 meq PO DAILY #30 tab.er.prt predniSONE [PredniSONE] 40 mg PO DAILY #4 tablet Azithromycin [Zithromax] 500 mg PO DAILY #4 tablet Continued Albuterol Neb [Proventil Neb] 2.5 mg IH PRN PRN PRN Reason: Shortness Of Breath/Wheezing Meclizine [Antivert] 25 mg PO PRN PRN PRN Reason: Dizziness Omeprazole [PriLOSEC] 20 mg PO BIDAC Rosuvastatin [Crestor] 10 mg PO DAILY Budesonide/Formoterol 80/4.5 [Symbicort] 2 puff IH BIDR Tizanidine [Zanaflex] 4 mg PO Q8H PRN PRN Reason: Muscle Spasm ALPRAZolam [Xanax 1 MG Tablet] 0.5 mg PO BID PRN PRN Reason: Anxiety Desvenlafaxine Succinate [Pristiq] 100 mg PO QAM Perphenazine/Amitriptyline HCl [Perphen-Amitrip 2 mg-25 mg Tab] 1 tab PO DAILY Hydroxychloroquine [Plaquenuil] 200 mg PO DAILY Ferrous Sulfate [Iron] 325 mg PO BID Oxygen 2 l NS HS Calcium Carb/Vitamin D3/Vit K1 [Calcium + D Soft Chewable Tab] 1 each PO BID Biotin [Ronnie Biotin] 20,000 mcg PO DAILY Ascorbic Acid [Vitamin C] 500 mg PO DAILY Albuterol Sulfate [Proair Respiclick] 2 puff IH PRN PRN PRN Reason: Shortness Of Breath Diclofenac Sodium [Voltaren] 1 appl TP QID PRN PRN Reason: Pain Amlodipine Besylate 10 mg PO HS hydrOXYzine HCl [Hydroxyzine HCl] 50 mg PO DAILY PRN PRN Reason: Anxiety Lidocaine Patch [Lidoderm 5% patch] 1 patch TP DAILY PRN PRN Reason: Pain Umeclidinium [place] [Incruse Ellipta] 62.5 mcg IH DAILY Folic Acid 1 mg PO DAILY #90 tablet Discontinued Dextroamphetamine Sulfate [Dexedrine] 30 mg PO BID Losartan/Hydrochlorothiazide [Losartan-Hctz 100-25 mg Tab] 1 each PO QAM Home Medications: ALPRAZolam [Xanax 1 MG Tablet] 0.5 mg PO BID PRN 01/31/15 [History] Albuterol Neb [Proventil Neb] 2.5 mg IH PRN PRN 01/31/15 [History] Budesonide/Formoterol 80/4.5 [Symbicort] 2 puff IH BIDR 01/31/15 [History] Desvenlafaxine Succinate [Pristiq] 100 mg PO QAM 01/31/15 [History] Meclizine [Antivert] 25 mg PO PRN PRN 01/31/15 [History] Omeprazole [PriLOSEC] 20 mg PO BIDAC 01/31/15 [History] Perphenazine/Amitriptyline HCl [Perphen-Amitrip 2 mg-25 mg Tab] 1 tab PO DAILY 01/31/15 [History] Rosuvastatin [Crestor] 10 mg PO DAILY 01/31/15 [History] Tizanidine [Zanaflex] 4 mg PO Q8H PRN 01/31/15 [History] Hydroxychloroquine [Plaquenuil] 200 mg PO DAILY 01/29/16 [History] Ferrous Sulfate [Iron] 325 mg PO BID 08/05/16 [History] Ascorbic Acid [Vitamin C] 500 mg PO DAILY 10/29/16 [History] Biotin [Ronnie Biotin] 20,000 mcg PO DAILY 10/29/16 [History] Calcium Carb/Vitamin D3/Vit K1 [Calcium + D Soft Chewable Tab] 1 each PO BID 10/29/16 [History] Oxygen 2 l NS HS 10/29/16 [History] Albuterol Sulfate [Proair Respiclick] 2 puff IH PRN PRN 02/25/17 [History] Amlodipine Besylate 10 mg PO HS 02/25/17 [History] Diclofenac Sodium [Voltaren] 1 appl TP QID PRN 02/25/17 [History] Lidocaine Patch [Lidoderm 5% patch] 1 patch TP DAILY PRN 03/07/17 [History] hydrOXYzine HCl [Hydroxyzine HCl] 50 mg PO DAILY PRN 03/07/17 [History] Umeclidinium [place] [Incruse Ellipta] 62.5 mcg IH DAILY 08/26/17 [History] Folic Acid 1 mg PO DAILY #90 tablet 05/08/18 [Rx] Azithromycin [Zithromax] 500 mg PO DAILY #4 tablet 07/20/18 [Rx] Furosemide [Lasix] 40 mg PO DAILY #30 tablet 07/20/18 [Rx] Potassium Chloride 10 meq PO DAILY #30 tab.er.prt 07/20/18 [Rx] predniSONE [PredniSONE] 40 mg PO DAILY #4 tablet 07/20/18 [Rx] Allergies/Adverse Reactions: Allergy/AdvReac Type Severity Reaction Status Date / Time oxycodone [Oxycodone] Allergy Unknown Itching/del Verified 02/27/18 14:23 usional Methylphenidate AdvReac Palpitation Verified 02/27/18 14:23 [From Ritalin] s Date of admission: 07/18/18 13:56 Primary care physician: Sandra Costa MD Consults: 07/20/18 08:49 Consult to Nurse Navigator [CONS] Routine Comment: COPD, CHF - Constitutional Vitals: Temp Pulse Resp BP Pulse Ox 97.8 F 71 16 116/69 95 07/20/18 06:53 07/20/18 06:53 07/20/18 06:53 07/20/18 06:53 07/20/18 06:53 Exam: General: NAD, good eye contact, well appearing, obese Thoracic: Good air movement, no crackles today, does have end expiratory wheezes on forced exhalation Cardio: Normal S1 and S2, regular rate and rhythm, no murmurs Abdomen: Soft, nontender Extremities: Warm, well perfused. DP pulses 2+ b/l. Mild nonpitting b/l LE edema in ankles Skin: Intact. No rashes, bruises, or ulcers Neuro: Awake, fully oriented. Speech fluent - Patient Status Disposition: Home, Self-Care Condition: Fair Functional capacity at discharge: independent ambulation Overall status at discharge: patient is progressing back to baseline - Discharge Instructions Follow Up With: Sandra Costa MD [Primary Care Provider] - - Diet and Activity Activity: resume usual activities as tolerated, wear oxygen at all times Diet: low salt diet
== END 2018-07-20 11:19 | disposition home or self-care (01) | DRG 291 ==
LOC: EMEROOARM 16:45 → 3BNU 16:45 → SUATTDRO 18:48 → 3BNU 19:49
PROVIDERS: ADMIT Student in an Organized Health Care Education/Training Program; ATTEND Internal Medicine